=== PATIENT | male | born 1955 | race Caucasian/White ===

== ENCOUNTER 2025-01-04 13:51 | Outpatient (CLI) | payer MEDICARE, OTHER, SELFPAY ==
--- NOTE | 2025-01-04 13:55 | MR_ITS ---
WS: [id number] MRI RIGHT SHOULDER HISTORY: INTERNAL IMPINGEMENT OF R SHOULDER COMPARISON: RIGHT shoulder radiographs 12/26/2024 TECHNIQUE: Multiplanar sequences of the shoulder joint are submitted. Chronic deformity of the RIGHT clavicle from a prior fracture with healing. Mild downsloping of the acromion. Mild subacromial impingement upon the supraspinatus. Moderate amount of fluid in the subacromial and subdeltoid bursa. No os acromion. Absent biceps tendon from the bicipital groove. Increased fluid within the biceps tendon sheath. Torn biceps tendon is noted in the biceps tendon sheath over the proximal humeral diaphysis. The portion of the biceps tendon that is visualized is irregular and torn. Insertion site tear of the supraspinatus tendon. No retraction of the tendon. Surface fraying along the surfaces of the tendon. Tendinopathy and intermediate signal in the subscapularis tendon. No tear. Moderate narrowing of the coracohumeral interval due to osteophytes from the humeral head and the co racoid. Interstitial tear in the distal infraspinatus tendon. There is fluid extending along the tendon. Increased signal in the rotator cuff interval. Increased signal also in the coracohumeral ligament. Abnormal signal involving the humeral head cortical surface with subchondral cystic changes. Increased fluid in the subscapular recess. No rotator cuff muscle atrophy. No edema. No labral abnormality identified. MR/MR shoulder RT wo con* [id number] IMPRESSION: 1. Chronic deformity RIGHT clavicle from a prior fracture with healing. 2. Downsloping of the acromion encroaching upon the supraspinatus. 3. Absent biceps tendon from the bicipital groove. Biceps tendon is torn and r etracted to the proximal humeral diaphysis. The portion of the biceps tendon th at is visualized is irregular with abnormal signal. 4. Insertion site of the supraspinatus tendon without retraction. 5. Mild tendinopathy of the distal subscapularis tendon. 6. Narrowing of the coracohumeral interval. 7. Interstitial tear in the distal infraspinatus tendon. 8. Loss of the normal cortical surface of the humeral head with subchondral cy stic changes. 9. No rotator cuff muscle atrophy or edema.
== END 2025-01-04 13:52 | disposition home or self-care (01) ==
LOC: RAD 13:53
PROVIDERS: PCP Physician Assistant; Visit Provider Physician Assistant
DX: M75.41 Impingement syndrome of right shoulder (principal); M21.821 Other specified acquired deformities of right upper arm; S46.211A Strain of muscle, fascia and tendon of other parts of biceps, right arm, initial encounter; M67.813 Other specified disorders of tendon, right shoulder; M25.711 Osteophyte, right shoulder; S46.011A Strain of muscle(s) and tendon(s) of the rotator cuff of right shoulder, initial encounter; X58.XXXA Exposure to other specified factors, initial encounter; M85.9 Disorder of bone density and structure, unspecified
CPT/HCPCS: 73221

== ENCOUNTER → 2025-01-16 07:37 | Outpatient (BNVA) | payer MEDICARE, OTHER, SELFPAY | PROVIDERS: PCP Physician Assistant; Visit Provider Orthopaedic Surgery | DX: S46.211A Strain of muscle, fascia and tendon of other parts of biceps, right arm, initial encounter (principal); M75.111 Incomplete rotator cuff tear or rupture of right shoulder, not specified as traumatic; Z01.818 Encounter for other preprocedural examination; X58.XXXA Exposure to other specified factors, initial encounter | CPT/HCPCS: 36415; 80053; 81001; 85025; 99204 ==

== ENCOUNTER 2025-01-20 17:50 | Emergency (ER) | payer MEDICARE, OTHER, SELFPAY ==
--- OUTSIDE RECORDS SUMMARY | 2025-01-20 17:55 | XMS_ITS | Clinical Summary ---
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
--- OUTSIDE RECORDS SUMMARY | 2025-01-20 17:55 | XMS_ITS | Clinical Summary ---
Author Organization [facility] Address [address] [place] [address] Phone Care Team Providers Care Distance Education Teacher Name Role Phone Unavailable Primary Care Provider Unavailabl e Allergies No known active allergies Medications oxyCODONE-acetam inophen (PERCOCET) 5-325 mg Oral tablet Take 1 Tab by mouth every 6 hours as needed for Pain, Moderate. 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 Gender Identity Not on file Sexual Orientation Not on file Last Filed Vital Signs Vital Sign Reading Time Taken Comments Blood Pressure 115/83 12/20/2011 2:00 PM CDT Pulse 83 12/20/2011 2:00 PM CDT Temperature 37.2 C (98.9 F) 12/20/2011 8:01 AM CDT Respiratory Rate 16 12/20/2011 9:21 AM CDT Oxygen Saturation 93% 12/20/2011 2:00 PM CDT Inhaled Oxygen Concentration - - Weight 79.4 kg (175 lb) 12/20/2011 8:01 AM CDT Height 175.3 cm (5' 9 ) 12/20/2011 8:01 AM CDT Body Mass Index 25.84 12/20/2011 8:01 AM CDT Plan of Treatment Health Maintenance Due Date Last Done Comments COLORECTAL SCREENING 2002 Colorectal Cancer Screening 2002 FIT-DNA Q 3 years 2002 FIT/FOBT Q 1 year 2002 Flex Sig/CT Colonography Q 5 years 2002 PNEUMOCOCCAL VACCINE 50+ YEARS (1 of 1 - PCV) 12/12/19 08 ZOSTER VACCINE (1 of 2) 12/12/2007 DTAP/TDAP/TD VACCINES (2 - Td or Tdap) 12/19/2021 INFLUENZA VACCINE (#1) 2024 RSV VACCINE (60+ or ) (1 - 1-dose 75+ series) 2032 Insurance [employer]
[2025-01-20 18:05] VITALS: BP 169/84; PULSE 70; RESP 18; TEMP 36.5; O2SAT 98
[2025-01-20 19:29] LABS: Hematocrit 48.2 % (37-53); Hemoglobin 15.50 g/dL (11.27-16.99); Mean Corpuscular HGB Conc 32.2 g/dL (30-55); Mean Corpuscular Hemoglobin 28.7 pg (27-33); Mean Corpuscular Volume 89.3 fl (82-101); Nucleated Red Blood Cells % 0 %; Platelet Count 336 10^3/cmm (157-399); Red Blood Count 5.40 10^6/uL (3.85-5.65); White Blood Count 14.75 10^3/uL (3.29-11.43)
[2025-01-20 19:46] LABS: Alanine Aminotransferase 21 U/L (0-41); Albumin Level 4.3 g/dL (3.5-5.2); Alkaline Phosphatase 82 U/L (40-130); Anion Gap 14.3 (5-19); Aspartate Amino Transferase 22 U/L (0-40); Blood Urea Nitrogen 20 mg/dL (8-23); Calcium 9.2 mg/dL (8.5-10.5); Carbon Dioxide 24 mmol/L (22-29); Chloride 105 mmol/L (98-107); Creatinine Clr Calc Pharmacy 78.4043; Globulin 2.9 g/dL (1.3-4.6); Glucose 128 mg/dL (65-115); Lipase 27 U/L (13-60); Osmolality Calculated 292 mOsm/kg (285-295); Potassium 4.3 mmol/L (3.5-5.1); Sodium 139 mmol/L (136-145); Total Protein 7.2 g/dL (6.6-8.7)
--- NOTE | 2025-01-20 20:10 | CTR_ITS ---
PROCEDURE INFORMATION: Exam: CT Abdomen And Pelvis Without Contrast Exam date and time: 01/20/2025 8:44 PM Age: 69 years old Clinical indication: Abdominal pain; Right; C/O RT flank pain; Additional info: Right flank pain TECHNIQUE: Imaging protocol: Computed tomography of the abdomen and pelvis without contrast. Radiation optimization: All CT scans at this facility use at least one of these dose optimization techniques: automated exposure control; mA and/or kV adjustment per patient size (includes targeted exams where dose is matched to clinical indication); or iterative reconstruction. COMPARISON: No relevant prior studies available. RADIATION DOSE METRICS: Total DLP (mGy-cm): 592.53 FINDINGS: Liver: Normal. No mass. Gallbladder and biliary ducts: Normal. No calcified stones. No ductal dilation. Pancreas: Normal. No ductal dilation. Spleen: Normal. No splenomegaly. Adrenal glands: Normal. No mass. Kidneys and ureters: 1.3 cm left renal cortical cysts. 3 mm calculus in the distal right ureter at the level of the ureterovesicular junction with mild upstream hydroureteronephrosis and perinephric fat stranding. No left hydronephrosis. Stomach and bowel: Sigmoid diverticulosis without evidence of acute diverticulitis. No evidence of bowel obstruction. Appendix: No evidence of appendicitis. Intraperitoneal space: Unremarkable. No free air. No significant fluid collection. Vasculature: Moderate atherosclerotic aortoiliac calcifications. No abdominal aortic aneurysm. Lymph nodes: Unremarkable. No enlarged lymph nodes. Urinary bladder: Unremarkable as visualized. Reproductive: Mild prostatomegaly. Bones/joints: Moderate degenerative changes of the visualized spine. No acute osseous findings. Soft tissues: Unremarkable. CT/CT kidney stone [id number] IMPRESSION: 1. 3 mm calculus in the distal right ureter at the level of the UVJ with mild upstream hydroureteronephrosis. 2. Sigmoid diverticulosis without diverticulitis. COMMENTS: Consistent with the [place] [employer]'s Incidental Findings Committee white paper (J Am Bri Radiol 2018): Any incidental renal lesion less than 1 cm or classified as too small to characterize, or any incidental cystic renal lesion characterized as simple-appearing, is likely benign. No follow-up imaging is recommended for these lesions per consensus recommendations based on imaging criteria.
--- NOTE | 2025-01-20 20:14 | W.ED.ABDPA2 ---
HPI - Abdominal Pain General: Chief Complaint: Abdominal Pain Stated Complaint: abd pain Time Seen by Provider: 01/20/25 20:04 History of Present Illness: Patient with a history of kidney stones who presents with right-sided flank pain that radiates around the right lower abdomen into the right testicle. Pain started around 1 PM. Has vomited twice. Related Data Previous Rx's ?Medication ?Instructions ?Recorded ciprofloxacin HCl 500 mg tablet 500 mg PO Q12H #14 tabs 01/20/25 (Cipro) hydrocodone 5 mg-acetaminophen 325 1 tab PO Q6H #20 tabs 01/20/25 mg tablet ondansetron 4 mg disintegrating 4 mg PO TID 5 days #15 tabs 01/20/25 tablet Allergies Allergy/AdvReac Type Severity Reaction Status Date / Time No Known Allergies Allergy Verified 01/20/25 18:09 [facility] ED PFSH: Social History Smoking and tobacco/nicotine status: former use of tobacco/nicotine Physical Exam Const: COMMON NORMALS: no acute distress, average body habitus, patient oriented x3, no limitations, healthy appearing, alert and well nourished Resp: COMMON NORMALS: normal respiratory effort, No retractions, No use of accessory muscles, clear to auscultation bilaterally and percussion normal AUSCULTATION: clear to auscultation bilaterally PERCUSSION: percussion normal GI: COMMON NORMALS: Normal to inspection, nondistended, normoactive bowel sounds present, Soft to palpation, No hepatosplenomegaly present, no masses and no bruits; negative for non-tender PALPATION: Yes Soft to palpation and Yes No hepatosplenomegaly present OTHER: Right flank pain and right lower quadrant abdominal pain Back/Pelvis: OTHER: Right flank pain Neuro: COMMON NORMALS: patient oriented x3 SENSORIUM/ORIENTATION: Yes alert Course Vital Signs: Vital signs: Vital Signs Temperature 97.7 F 01/20/25 18:05 Pulse Rate 70 01/20/25 18:05 Respiratory Rate 17 01/20/25 20:20 Blood Pressure 169/84 01/20/25 18:05 Pulse Oximetry 98 01/20/25 18:05 Oxygen Delivery Me thod Room Air 01/20/25 18:05 MDM - Abdominal Pain Medical Decision Making Patient with right flank pain that started this afternoon. Has a history of kidney stones. Patient CT shows a 3 mm right obstructing kidney stone. Patient also with some leukocytosis and is noted in his urinalysis although this may just be inflammatory. Will start patient on antibiotics as well. Patient does not appear to be septic. Patient is feeling much better after treatment here in the ER. Recommend encouraged lots of fluids and I suspect the stone will pass due to its size. Lab Data 01/20/25 19:20 01/20/25 19:20 Labs/Radiology: Radiology Impressions Abdomen/Pelvis CT 01/20/25 20:10 IMPRESSION: 1. 3 mm calculus in the distal right ureter at the level of the UVJ with mild upstream hydroureteronephrosis. 2. Sigmoid diverticulosis without diverticulitis. COMMENTS: Consistent with the [place] [employer]'s Incidental Findings Committee white paper (J Am Bri Radiol 2018): Any incidental renal lesion less than 1 cm or classified as too small to characterize, or any incidental cystic renal lesion characterized as simple-appearing, is likely benign. No follow-up imaging is recommended for these lesions per consensus recommendations based on imaging criteria. Laboratory Results WBC 14.75 10^3/uL (3.29-11.43) H 01/20/25 19:20 RBC 5.40 10^6/uL (3.85-5.65) 01/20/25 19:20 Hgb 15.50 g/dL (11.27-16.99) 01/20/25 19:20 Hct 48.2 % (37-53) 01/20/25 19:20 MCV 89.3 fl (82-101) 01/20/25 19:20 MCH 28.7 pg (27-33) 01/20/25 19:20 MCHC 32.2 g/dL (30-55) 01/20/25 19:20 RDW 14.5 % (12.1-15.1) 01/20/25 19:20 Plt Count 336 10^3/cmm (157-399) 01/20/25 19:20 MPV 9.5 fL (7.4-10.4) 01/20/25 19:20 Neut % (Auto) 87.6 % 01/20/25 19:20 Lymph % (Auto) 7.7 % 01/20/25 19:20 Emmons % (Auto) 3.3 % 01/20/25 19:20 Eos % (Auto) 0.5 % 01/20/25 19:20 Baso % (Auto) 0.4 % 01/20/25 19:20 Neut # (Auto) 12.94 10^3/uL (1.8-7.7) H 01/20/25 19:20 Lymph # (Auto) 1.1 10^3/uL (0.8-4.8) 01/20/25 19:20 Emmons # (Auto) 0.5 10^3/uL (0.2-0.9) 01/20/25 19:20 Eos # (Auto) 0.1 10^3/uL (0.0-0.8) 01/20/25 19:20 Baso # (Auto) 0.1 10^3/uL (0.0-0.1) 01/20/25 19:20 Nucleated RBC % (auto) 0 % 01/20/25 19:20 Nucleated RBCs # 0.0 /100WBC 01/20/25 19:20 Sodium 139 mmol/L (136-145) 01/20/25 19:20 Potassium 4.3 mmol/L (3.5-5.1) 01/20/25 19:20 Chloride 105 mmol/L (98-107) 01/20/25 19:20 Carbon Dioxide 24 mmol/L (22-29) 01/20/25 19:20 Anion Gap 14.3 (5-19) 01/20/25 19:20 BUN 20 mg/dL (8-23) 01/20/25 19:20 Creatinine 0.9 mg/dL (0.7-1.2) 01/20/25 19:20 GFR Calculation 84.2 mL/min (90-130) L 01/20/25 19:20 Glucose 128 mg/dL (65-115) H 01/20/25 19:20 Calculated Osmolality 292 mOsm/kg (285-295) 01/20/25 19:20 Calcium 9.2 mg/dL (8.5-10.5) 01/20/25 19:20 Total Bilirubin 0.3 mg/dL (0.15-1.2) 01/20/25 19:20 AST 22 U/L (0-40) 01/20/25 19:20 ALT 21 U/L (0-41) 01/20/25 19:20 Alkaline Phosphatase 82 U/L (40-130) 01/20/25 19:20 Total Protein 7.2 g/dL (6.6-8.7) 01/20/25 19:20 Albumin 4.3 g/dL (3.5-5.2) 01/20/25 19:20 Globulin 2.9 g/dL (1.3-4.6) 01/20/25 19:20 Lipase 27 U/L (13-60) 01/20/25 19:20 Urine Color Dark yellow (Yellow) A 01/20/25 20:06 Urine Appearance Turbid (CLEAR) A 01/20/25 20:06 Urine pH 5.0 (5-7) 01/20/25 20:06 Ur Specific Narrows 1.032 (1.005-1.030) H 01/20/25 20:06 Urine Protein 1+ (Negative) A 01/20/25 20:06 Urine Glucose (UA) Negative (Normal) 01/20/25 20:06 Urine Ketones Trace (Negative) 01/20/25 20:06 Urine Blood 3+ (Negative) A 01/20/25 20:06 Urine Nitrate Negative (Negative) 01/20/25 20:06 Urine Bilirubin Negative (Negative) 01/20/25 20:06 Urine Urobilinogen 1.0 mg/dL (Negative) 01/20/25 20:06 Ur Leukocyte Esterase 1+ (Negative) A 01/20/25 20:06 Urine RBC >100 /hpf (0-2) H 01/20/25 20:06 Urine WBC 21-50 /hpf (0-5) H 01/20/25 20:06 Ur Squamous Epith Cells 0-5 /hpf (0-5) 01/20/25 20:06 Uric Acid Crystals 15-25 /hpf H 01/20/25 20:06 Amorphous Sediment Not Reportable 01/20/25 20:06 Urine Bacteria None seen /hpf (NONE) 01/20/25 20:06 Hyaline Casts 6.17 /lpf 01/20/25 20:06 All radiology interpretation(s) finalized by discharge Discharge Plan Discharge Patient Disposition: Home Clinical Impression: Kidney stone Condition: Stable Prescriptions: New hydrocodone-acetaminophen 5-325 mg tablet 1 tab PO Q6H Qty: 20 0RF ondansetron 4 mg tablet,disintegrating 4 mg PO TID 5 Days Qty: 15 0RF ciprofloxacin HCl [Cipro] 500 mg tablet 500 mg PO Q12H Qty: 14 0RF Discharge Orders: Discharge ED (Routine); Ordered 01/20/25 Ordered By: Raul Crowley Referrals: Emma Moseley PA [Primary Care Provider, Physicians Supervisor Jewelry Department] Discharge Diet: Advance as tolerated Patient Instructions: Opioid Safety, Pain Management, Patient Portal & Lam[facility] Instructions Print Language: Faroese Coding Level of Care Code ED Side Seam Machine Operator for Sharon Gomez
[2025-01-20 20:17] LABS: Glucose Urine UA Negative (Normal); Nitrate Urine Negative (Negative)
[2025-01-20 20:20] VITALS: RESP 17
[2025-01-20] MEDS: morphine 4 mg/mL SDV 1 mL IVP (20:20)
[2025-01-20] MEDS: ondansetron 2 mg/ML SDV 2 mL 4 MG IVP (20:21)
[2025-01-20 20:22] LABS: Add Urine Microscopic? YES
[2025-01-20 20:38] LABS: Specific Gravity, Urine 1.032 (1.005-1.030); UA Slide Review UA Slide Review Perf
[2025-01-20] MEDS: cefTRIAXone 1,000 mg SDV 1000 MG IVP (22:32)
[2025-01-20 22:35] VITALS: BP 153/75; PULSE 83; RESP 17; O2SAT 94
[2025-01-20] MEDS: HYDROcodone-acetaminophen 5-325 mg Tablet 2 TAB PO (22:52)
== END 2025-01-20 23:08 | disposition home or self-care (01) ==
PROVIDERS: Emergency Provider Emergency Medicine; PCP Physician Assistant
DX: N20.0 Calculus of kidney (principal)
CPT/HCPCS: 36415; 74176; 80053; 81001; 83690; 85025; 87086; 96361; 96374; 96375; 99285; J0696; J2270; J2405; J7030; J9999

== ENCOUNTER → 2025-01-27 09:36 | Outpatient (BNVA) | payer MEDICARE, OTHER, SELFPAY | PROVIDERS: PCP Physician Assistant; Visit Provider Family Medicine | DX: Z01.818 Encounter for other preprocedural examination (principal); R00.1 Bradycardia, unspecified; R93.1 Abnormal findings on diagnostic imaging of heart and coronary circulation | CPT/HCPCS: 81000; 93005 ==

== ENCOUNTER 2025-02-01 08:03 | Day surgery (SDC) | payer MEDICARE, OTHER, SELFPAY ==
[2025-02-01] VITALS (11 sets, daily range): BP systolic 114–152; BP diastolic 74–88; PULSE 63–68; RESP 12–18; TEMP 36.1–36.2; O2SAT 93–97; BMI 25.3
--- NOTE | 2025-02-01 08:59 | W.PM.OPSUD ---
Surgery/Procedure H&P Update DATE OF PROCEDURE: February 01, 2025 DATE H&P PERFORMED: 01/27/25 H&P UPDATE INFORMATION: I have reviewed H&P completed within last 30 days, I have examined patient prior to procedure and No changes to prior documentation PREOP DIAGNOSIS: Internal derangement of the right shoulder, biceps tendon tear PLANNED PROCEDURE: Operation Date: 02/01/25 10:00 Proposed Procedures p RIGHT Shoulder Arthroscopy(Right) - MD meeta Rice RIGHT Open Rotator Cuff Repair(Right) - MD meeta Rice POSSIBLE Shoulder Acromioplasty(Right) - MD meeta Rice RIGHT OPEN Bicep Tenodesis(Right) - Amador Ivey MD
--- NOTE | 2025-02-01 09:28 | SUR.PREOP ---
0925-right interscalene block performed by dr romero at bedside using 30ml 0.5% ropivicaine and 100mcg fentanyl. patient tolerated well
[2025-02-01] MEDS: ceFAZolin 2,000 mg SDV 2000 MG IVP (09:30)
--- NOTE | 2025-02-01 09:30 | ANES.PREANE2 ---
Pre-Anesthetic Assessment Height/Weight: Height 5 ft 7 in Weight 162 lb Temp Pulse Resp BP Pulse Ox O2 Del Method 97.2 F L 67 18 152/83 97 Room Air 02/01/25 08:17 02/01/25 08:17 02/01/25 08:17 02/01/25 08:17 02/01/25 08:17 02/01/25 08:18 Preop Diagnosis: Internal derangement of the right shoulder, biceps tendon tear Operation Date: 02/01/25 10:00 Proposed Procedures p RIGHT Shoulder Arthroscopy(Right) - Amador Ivey MD s RIGHT Open Rotator Cuff Repair(Right) - Amador Ivey MD s POSSIBLE Shoulder Acromioplasty(Right) - Amador Ivey MD s RIGHT OPEN Bicep Tenodesis(Right) - Amador Ivey MD Was Beta Beena taken within 24 hours: N/A Was Clonidine taken within 24 hours: N/A Last intake: Intake Last Liquid Date 01/31/25 Last Liquid Time 19:30 Last Solid Date 01/31/25 Last Solid Time 19:30 Social No alcohol and No tobacco Exam alert, oriented x 3, clear to auscultation bilaterally and regular rate & rhythm Airway Submandibular: within normal limits Cervical ROM: within normal limits Mallampati: Class II Comments: Comments: Edentulous Anesthetic Plan ASA status: 2 Anesthesia: General and Regional (specify below) Other: No prior issues with anesthesia NPO since yesterday evening Denies any cardiac issues, preop BP 152/83 Suspected sleep apnea METs greater than 4, no home meds Plan for general anesthesia with preop nerve block Medications/Allergies Allergies Allergy/AdvReac Type Severity Reaction Status Date / Time No Known Allergies Allergy Verified 01/27/25 10:09 Current Medications Generic Name Dose Route Start Last Admin Trade Name Freq PRN Reason Stop Dose Admin Sodium Chloride 1,000 mls @ 30 mls/hr 02/01/25 08:15 02/01/25 08:24 Sodium Chloride 0.9% IV 02/02/25 08:14 30 mls/hr .Q24H IJEOMA Administration PFSH Anesthesia Social History Smoking and tobacco/nicotine status: never used tobacco/nicotine
--- NOTE | 2025-02-01 09:31 | ANES.PROC ---
Anesthesia Procedures Procedure/Date: 02/01/25 Nerve Block ^: Nerve Block 1: Main Anesthesia: other (100 mcg of fentanyl) Time Out Performed: Yes Consent: requested by attending/covering physician and from patient Nerve block location: interscalene Anesthesia monitors applied: pulse oximetry, EKG, BP cuff and oxygen Nerve block position: supine Anesthetic Used: ropivicaine 0.5% Amount of anesthesia used (mL): 30 Ultrasound used to: recognize landmarks Nerve Stimulator Used?: Yes Interscalene/Femoral BLK: other needle (pjunk 4inch) Injection: neg aspiration of heme Patient Tolerated Procedure: well Complications: none Additional Comments: Decadron 4 mg added to block
--- NOTE | 2025-02-01 10:57 | P.OP_ITS ---
Operative Report Date of procedure: February 01, 2025 Surgeon: Amador Ivey MD Procedure: Preoperative diagnosis: Internal derangement of the right shoulder, rotator cuff tear, biceps tendon tear Postoperative diagnosis: Torn anterior and superior labrum, ruptured biceps tendon, torn rotator cuff, acromial impingement, hypertrophic bursa, adhesions Procedure: Diagnostic right shoulder arthroscopy with debridement of rotator cuff and torn labrum. Mini open acromioplasty, bursectomy, rotator cuff repair, lysis of adhesions. Surgeon: Amador Ivey MD Packer Insulation: NUVIA Baum's assistance was necessarily for positioning the patient, assistance during the procedure, wound closure, placement of abduction pillow and sling, and transfer the patient to PACU Anesthesia: General With preoperative scalene block EBL: None Indications: Mike is a 69-year-old white male who is referred in by his primary care provider for painful right shoulder. Approximately 1 month prior he had an injury to her shoulder had pain and snap or a pop in his shoulder since that time has had difficulty raising his arm. Difficulty biceps pain and points to the proximal biceps tendon region as the most pain. No other gross abnor malities are noted at this time. MRI has demonstrated torn rotator cuff. Torn biceps tendon. Therefore he was offered diagnostic shoulder arthroscopy with all indicated procedures with possible anchoring of his biceps tendon. All risk benefits treatment alternatives have been discussed and he is agreeable to proceed with surgical intervention. Procedure: After obtaining consent patient had preoperative skin block administered in preop holding area. Patient was then taken to the operating room and placed on the operative table supine position and general anesthetic administered. Once good anesthesia was achieved patient was placed up in the beachchair position. Patient's head was secured as well as rest of his body. All aspects padded appropriately. Right shoulder and arm were prepped and draped usual fashion. After surgical timeout standard posterior portals made with 11 blade of the right glenohumeral joint line. Camera cans placed within the joint line. Subsequently anterior working cannula was also placed just inferior to the clavicle. Inspection of the glenohumeral joint line demonstrated near complete wear of the anterior labrum all the way down to about the 5 o'clock position. Patient also had wear of the superior labrum and absence of the biceps tendon. All these areas were debrided with mechanical shaver down to stable cartilaginous base. There is hypertrophic synovium throughout gross inflammation throughout. Evaluating the rotator cuff found there is a split from around the subscapularis insertion into the supraspinatus insertion. This area was also debrided. Arthroscopy was abandoned at this time. A small incision made off the anterior lateral aspect the acromion. Sharp dissection taken on down to subcutaneous tissues electrocautery used for hemostasis. Deltoid was divided by electrocautery and removed from the anterior portion of the acromion with electrocautery. Using a small microsagittal saw acromioplasty was done to the anterior acromion. Bone fragments removed the rongeur. Hypertrophic bursa was sharply debrided from the area to expose the rotator cuff. Large tear of the rotator cuff that extended down into the bicipital groove and all the way over into the midportion of the supraspinatus insertion was identified. All edges were freshened with a #15 blade. Subsequently three 2.9 juggernaut anchors were driven and equal distance across the area of this tear. Horizontal mattress sutures were used to repair this. Prior to doing this exploration of the bicipital groove did not demonstrate biceps tendon however with deep palpation down the arm biceps tendon could be felt in the bicipital groove and appeared to be scarring in place. Rotator cuff was repaired with horizontal mattress sutures. Shoulder put the range of motion found to be in good good repair. Digital sweeping of the subacromial space found that multiple adhesions which were broken up at this time. Deltoid was then reapproximated 0 Vicryl [id number] sutures back to the acromion. Subcutaneous tissue reapproximated 0 Vicryl interrupted sutures. Skin was closed with skin brien. Wounds were cleaned and dried dressed with Xeroform gauze sterile gauze dressing ABDs and adhesive tape. Patient was placed into an abduction pillow and sling. He was awakened transferred to the recovery room in stable condition condition
[2025-02-01] MEDS: oxyCODONE-APAP 5-325 mg Tablet 1 TAB PO (11:51)
--- NOTE | 2025-02-01 12:31 | ANE.PACU2 ---
Inpatient post-anesthesia follow up: Airway intact: Yes Vital signs: Temperature 97.0 F Pulse Rate 68 Respiratory Rate 16 Blood Pressure 131/76 Pulse Oximetry 94 Oxygen Delivery Me thod Room Air Oxygen Flow Rate Fraction of Inspir ed Oxygen Hydration adequate: Yes Nausea and vomiting: No Pain level: 1 Mental status: Baseline
== END 2025-02-01 12:31 | disposition home or self-care (01) ==
PROVIDERS: PCP Physician Assistant; Visit Provider Orthopaedic Surgery
PROC: (CPT 29805; principal; 2025-02-01 09:40)
PROC: (CPT 23130; 2025-02-01 09:40)
DX: M24.811 Other specific joint derangements of right shoulder, not elsewhere classified (principal); S43.431A Superior glenoid labrum lesion of right shoulder, initial encounter; S46.211A Strain of muscle, fascia and tendon of other parts of biceps, right arm, initial encounter; X58.XXXA Exposure to other specified factors, initial encounter; M75.121 Complete rotator cuff tear or rupture of right shoulder, not specified as traumatic; M75.41 Impingement syndrome of right shoulder; M75.51 Bursitis of right shoulder; M75.01 Adhesive capsulitis of right shoulder
CPT/HCPCS: 23410; 29823; C1713; J0690; J1100; J2405; J2704; J3010; J7030; J9999

== ENCOUNTER → 2025-02-16 08:43 | Outpatient (BNVA) | payer MEDICARE, OTHER, SELFPAY | PROVIDERS: PCP Physician Assistant; Visit Provider Orthopaedic Surgery | DX: Z98.890 Other specified postprocedural states (principal) | CPT/HCPCS: 99024 ==

== ENCOUNTER 2025-02-17 06:30 | Outpatient (RCR) | payer MEDICARE, OTHER, SELFPAY | END 2025-03-19 23:59 | disposition home or self-care (01) | LOC: SPT 06:30 | PROVIDERS: PCP Physician Assistant; Visit Provider Orthopaedic Surgery | DX: Z47.89 Encounter for other orthopedic aftercare (principal) | CPT/HCPCS: 97110; 97161 ==

== ENCOUNTER → 2025-03-03 08:36 | Outpatient (BNVA) | payer MEDICARE, OTHER, SELFPAY | PROVIDERS: PCP Physician Assistant; Visit Provider Orthopaedic Surgery | DX: Z98.890 Other specified postprocedural states (principal) | CPT/HCPCS: 99024 ==

== ENCOUNTER 2025-03-20 05:00 | Outpatient (RCR) | payer MEDICARE, OTHER, SELFPAY | END 2025-04-18 23:59 | disposition home or self-care (01) | LOC: SPT 05:00 | PROVIDERS: PCP Physician Assistant; Visit Provider Orthopaedic Surgery | DX: M75.101 Unspecified rotator cuff tear or rupture of right shoulder, not specified as traumatic (principal) | CPT/HCPCS: 97110 ==

== ENCOUNTER → 2025-04-03 07:39 | Outpatient (BNVA) | payer MEDICARE, OTHER, SELFPAY | PROVIDERS: PCP Physician Assistant; Visit Provider Orthopaedic Surgery | DX: Z98.890 Other specified postprocedural states (principal) | CPT/HCPCS: 99024 ==

== ENCOUNTER 2025-04-19 06:30 | Outpatient (RCR) | payer MEDICARE, OTHER, SELFPAY | END 2025-05-03 09:49 | disposition home or self-care (01) | LOC: SPT 06:30 | PROVIDERS: PCP Physician Assistant; Visit Provider Orthopaedic Surgery | DX: Z47.89 Encounter for other orthopedic aftercare (principal) | CPT/HCPCS: 97110 ==

== ENCOUNTER → 2025-05-02 08:10 | Outpatient (BNVA) | payer MEDICARE, OTHER, SELFPAY | PROVIDERS: PCP Physician Assistant; Visit Provider Orthopaedic Surgery | DX: Z98.890 Other specified postprocedural states (principal) | CPT/HCPCS: 99024 ==